=== PATIENT | female | born 1975 | race Caucasian/White ===

== ENCOUNTER → 2020-05-21 | Outpatient (CLI) | payer BC ==
[~2020-05-21] MED LIST: BAMLANIVIMAB (EUA) 700 MG in NS 250ML 180 ML IV ONE
== END | disposition home or self-care (01) ==
LOC: OPTX 13:00 → EDSTATUS 13:30 → EDUNIT# 13:30 → OPTX 13:45
PROVIDERS: ATTEND Physician Assistant
DX: U07.1 COVID-19 (principal)
CPT/HCPCS: J7050; M0239; Q0239; 96365; 96366